=== PATIENT | male | born 1995 | race American Indian/Alaskan Native ===

== ENCOUNTER 2018-01-20 17:33 | Emergency (ER) | payer BC ==
[2018-01-20 17:52] VITALS: BP 131/74
[2018-01-20] MEDS ORDERED: NACL 0.9% 500 ML 500 ML IV ONE (19:42)
[2018-01-20] MEDS ORDERED: ROCEPHIN/NS 1 GM/50 ML 1 GM/50 ML BAG IV ONE (19:42)
[2018-01-20] MEDS ORDERED: MORPHINE IV ONE (19:42)
[2018-01-20] MEDS ORDERED: ROCEPHIN IM ONE (19:46)
--- NOTE | 2018-01-20 19:50 | Emergency Department Report ---
ED General Adult HPI - General Chief complaint: Animal Bite Stated complaint: INSECT BITE Time Seen by Provider: 01/20/18 19:42 Source: patient, EMS Mode of arrival: Wheelchair Limitations: No Limitations - History of Present Illness Initial comments: 22-year-old -[place] male comes in complaint of right left lower leg pain. Patient reports that his right lower legs has redness and swelling with a proximal 2 inch abrasion. Patient thinks he was bitten by a spider. Patient has received 1 L of normal saline with 18-gauge in his left arm by EMS. Patient is not febrile has no past medical history currently takes no medications has no known drug allergies. - Related Data Previous Rx's Medication Instructions Recorded Last Taken Type HYDROcodone/ACETAMINOPHEN [[place] 1 each PO Q6H PRN #8 tablet 01/20/18 Unknown Rx 5-325 Tablet] Sulfamethoxazole/Trimethoprim 1 each PO BID 10 Days #20 tablet 01/20/18 Unknown Rx [Bactrim DS TAB] Allergies Allergy/AdvReac Type Severity Reaction Status Date / Time No Known Allergies Allergy Unverified 01/20/18 17:47 ED Review of Systems ROS: Stated complaint: INSECT BITE Other details as noted in HPI Constitutional: denies: chills, fever Eyes: denies: eye pain, eye discharge, vision change ENT: denies: ear pain, throat pain Respiratory: denies: cough, shortness of breath, wheezing Cardiovascular: denies: chest pain, palpitations Endocrine: no symptoms reported Gastrointestinal: denies: abdominal pain, nausea, diarrhea Genitourinary: denies: urgency, dysuria Musculoskeletal: back pain Skin: rash, change in color Neurological: denies: headache, weakness, paresthesias Psychiatric: denies: anxiety, depression Hematological/Lymphatic: denies: easy bleeding, easy bruising ED Past Medical Hx - Past Medical History Previous Medical History?: No - Surgical History Past Surgical History?: No - Social History Smoking Status: Current Every Day Smoker Substance Use Type: Alcohol, Marijuana - Medications Home Medications: Home Medications Medication Instructions Recorded Confirmed Last Taken Type HYDROcodone/ACETAMINOPHEN [[place] 1 each PO Q6H PRN #8 tablet 01/20/18 Unknown Rx 5-325 Tablet] Sulfamethoxazole/Trimethoprim 1 each PO BID 10 Days #20 tablet 01/20/18 Unknown Rx [Bactrim DS TAB] ED Physical Exam - General Limitations: No Limitations General appearance: alert, in no apparent distress - Head Head exam: Present: atraumatic, normocephalic - Eye Eye exam: Present: normal appearance - ENT ENT exam: Present: mucous membranes moist - Respiratory Respiratory exam: Present: normal lung sounds bilaterally. Absent: respiratory distress - Cardiovascular Cardiovascular Exam: Present: regular rate, normal rhythm. Absent: systolic murmur, diastolic murmur, rubs, gallop - GI/Abdominal GI/Abdominal exam: Present: soft, normal bowel sounds - Rectal Rectal exam: Present: deferred - Expanded Lower Extremity Exam Right Upper Leg exam: Present: normal inspection Knee exam: Present: normal inspection Lower Leg exam: Present: tenderness, swelling, erythema Ankle exam: Present: normal inspection Foot/Toe exam: Present: normal inspection Neuro vascular tendon exam: Present: no vascular compromise - Back Exam Back exam: Present: normal inspection, full ROM - Neurological Exam Neurological exam: Present: alert, oriented X3 - Psychiatric Psychiatric exam: Present: normal affect, normal mood - Skin Skin exam: Present: other (right lower leg swelling erythema tenderness very tender to palpate with a 2 cm black abrasion.) ED Course Vital Signs 01/20/18 17:47 Temperature 98.6 F Pulse Rate 109 H Respiratory 20 Rate Blood Pressure 131/74 O2 Sat by Pulse 94 Oximetry ED Medical Decision Making - Medical Decision Making Patient has been evaluated by this provider fast track. Patient has had ordered 500 mL of normal saline which equals 1.5 L since patient had 1 L by EMS prior to arrival. Patient's been given 1 g of Ceftin IV. He's been given 2 mg of morphine IV. Discussed patient we would discharge him on Septra double strength one tablet by mouth twice a day. I will send him home or note: 5 mg every 6 hours when necessary as well as he can take ibuprofen by mouth every 6- 8 hours 600 mg. Discussed the patient is to follow up with primary care to have another provider evaluate his leg to be shorts improving. Also discussed the patient that I am working this cellulitis. In instructed him if this swelling in the erythematous travels beyond the line that he needs to return back to the emergency room. Patient and mother verbalized understanding. Critical care attestation.: If time is entered above; I have spent that time in minutes in the direct care of this critically ill patient, excluding procedure time. ED Disposition Clinical Impression: Cellulitis of right leg without foot Disposition: DC-01 TO HOME OR SELFCARE Is pt being admited?: No Does the pt Need Aspirin: No Condition: Stable Instructions: Cellulitis (ED) Additional Instructions: Please complete antibiotics as prescribed. Please do not operate heavy machinery while taking the [place]. He can take ibuprofen 600 mg by mouth every 8 hours when necessary as needed for pain as well. It is very important free to follow up with a primary care provider to be reevaluated. Prescriptions: HYDROcodone/ACETAMINOPHEN [[place] 5-325 Tablet] 1 each PO Q6H PRN #8 tablet PRN Reason: Pain Sulfamethoxazole/Trimethoprim [Bactrim DS TAB] 1 each PO BID 10 Days #20 tablet Referrals: PRIMARY CARE [Primary Care Provider] - 3-5 Days [facility], [facility] [Provider Group] - 3-5 Days Forms: Work/School Release Form(ED), Accompanied Note
== END 2018-01-20 22:20 | disposition home or self-care (01) ==
LOC: ED 17:33
DX: L03.115 Cellulitis of right lower limb (principal); F17.200 Nicotine dependence, unspecified, uncomplicated; F12.10 Cannabis abuse, uncomplicated
CPT/HCPCS: 96365; 96375; 99283; J0696; J2270; J7040

== ENCOUNTER 2018-02-20 12:01 | Emergency (ER) | payer BC ==
[2018-02-20 13:08] LABS: Basophils % (Auto) 0.4 % (0.0-1.8); Eosinophils # (Auto) 0.1 K/mm3 (0.0-0.4); Eosinophils % (Auto) 1.3 % (0.0-4.3); Hematocrit 39.4 % (35.5-45.6); Hemoglobin 13.7 gm/dl (11.8-15.2); Lymphocytes # (Auto) 1.8 K/mm3 (1.2-5.4); Mean Corpuscular HGB Conc 35 % (32-34); Mean Corpuscular Hemoglobin 33 pg (28-32); Mean Corpuscular Volume 95 fl (84-94); Monocytes # (Auto) 0.7 K/mm3 (0.0-0.8); Monocytes % (Auto) 9.9 % (0.0-7.3); Platelet Count 133 K/mm3 (140-440); Red Blood Count 4.14 M/mm3 (3.65-5.03); Red Cell Distribution Width 13.2 % (13.2-15.2)
[2018-02-20 13:11] LABS: Bilirubin,Urine NEG (Negative); Blood,Urine NEG (Negative); Color,Urine Straw (Yellow); Protein,Urine <15 mg/dL mg/dL (Negative); Urobilinogen,Urine < 2.0 mg/dL (<2.0); WBC,Urine < 1.0 /HPF (0.0-6.0)
[2018-02-20 13:29] LABS: BUN/Creatinine Ratio 18; Blood Urea Nitrogen 14 mg/dL (9-20); Calcium 8.8 mg/dL (8.4-10.2); Hemolysis Index 135
[2018-02-20 13:37] LABS: Amphetamine Screen,Urine PRESUMPTIVE NEGATIVE; Benzodiazepines Screen,Urine PRESUMPTIVE NEGATIVE; Cannabinoid Screen,Urine PRESUMPTIVE NEGATIVE; Cocaine Screen,Urine PRESUMPTIVE NEGATIVE; Methadone Screen,Urine PRESUMPTIVE NEGATIVE; Opiate Screen,Urine PRESUMPTIVE NEGATIVE
[2018-02-20 14:07] LABS: Alanine Aminotransferase 62 units/L (7-56)
--- NOTE | 2018-02-20 14:12 | Emergency Department Report ---
ED General Adult HPI - General Chief complaint: Altered Mental Status Stated complaint: SYNCOPE Time Seen by Provider: 02/20/18 12:46 Source: EMS Mode of arrival: Ambulatory Limitations: Altered Mental Status - History of Present Illness Initial comments: Patient presents to emergency department via EMS for syncopal episode. Patient states he bought 2 cigarettes from [employer] and he thinks they were laced. Patient states he began to smoke for cigarette and knows that it tasted weird so he discarded it and shortly after discarding the cigarette he passed out. Patient is not sure if he hit his head or not. Patient denies chest pain, abdominal pain, headache. Severity scale (0 -10): 2 Improves with: none Worsens with: none Associated Symptoms: denies other symptoms Treatments Prior to Arrival: none - Related Data Previous Rx's Medication Instructions Recorded Last Taken Type HYDROcodone/ACETAMINOPHEN [[place] 1 each PO Q6H PRN #8 tablet 01/20/18 Unknown Rx 5-325 Tablet] Sulfamethoxazole/Trimethoprim 1 each PO BID 10 Days #20 tablet 01/20/18 Unknown Rx [Bactrim DS TAB] Allergies Allergy/AdvReac Type Severity Reaction Status Date / Time No Known Allergies Allergy Unverified 01/20/18 17:47 ED Review of Systems ROS: Stated complaint: SYNCOPE Other details as noted in HPI Constitutional: denies: chills, fever Eyes: denies: eye pain, eye discharge, vision change ENT: denies: ear pain, throat pain Respiratory: denies: cough, shortness of breath, wheezing Cardiovascular: denies: chest pain, palpitations Endocrine: no symptoms reported Gastrointestinal: denies: abdominal pain, nausea, diarrhea Genitourinary: denies: urgency, dysuria Musculoskeletal: denies: back pain, joint swelling, arthralgia Skin: denies: rash, lesions Neurological: denies: headache, weakness, paresthesias Psychiatric: denies: anxiety, depression Hematological/Lymphatic: denies: easy bleeding, easy bruising ED Past Medical Hx - Past Medical History Previous Medical History?: Yes Hx Hypertension: No Hx CVA: No Hx Heart Attack/AMI: No Hx Congestive Heart Failure: No Hx Diabetes: No Hx Deep Vein Thrombosis: No Hx Pulmonary Embolism: No Hx GERD: No Hx Liver Disease: No Hx Renal Disease: No Hx of Cancer: No Hx Sickle Cell Disease: No Hx Arthritis: No Hx Headaches / Migraines: No Hx Seizures: No Hx Kidney Stones: No Hx Psychiatric Treatment: Yes Hx Asthma: No Hx COPD: No Hx Tuberculosis: No Hx Dementia: No Hx HIV: No - Surgical History Past Surgical History?: No Hx Coronary Stent: No Hx Open Heart Surgery: No Hx Pacemaker: No Hx Internal Defibrillator: No Hx Cholecystectomy: No Hx Appendectomy: No Hx Breast Surgery: No - Social History Smoking Status: Current Every Day Smoker Substance Use Type: Methamphetamines - Medications Home Medications: Home Medications Medication Instructions Recorded Confirmed Last Taken Type HYDROcodone/ACETAMINOPHEN [[place] 1 each PO Q6H PRN #8 tablet 01/20/18 Unknown Rx 5-325 Tablet] Sulfamethoxazole/Trimethoprim 1 each PO BID 10 Days #20 tablet 01/20/18 Unknown Rx [Bactrim DS TAB] ED Physical Exam - General Limitations: Altered Mental Status General appearance: alert, in no apparent distress - Head Head exam: Present: atraumatic, normocephalic - Eye Eye exam: Present: normal appearance, PERRL, EOMI - ENT ENT exam: Present: mucous membranes moist - Neck Neck exam: Present: normal inspection - Respiratory Respiratory exam: Present: normal lung sounds bilaterally. Absent: respiratory distress, wheezes, rales, rhonchi - Cardiovascular Cardiovascular Exam: Present: regular rate, normal rhythm. Absent: systolic murmur, diastolic murmur, rubs, gallop - GI/Abdominal GI/Abdominal exam: Present: soft, normal bowel sounds. Absent: distended, tenderness - Rectal Rectal exam: Present: deferred - Extremities Exam Extremities exam: Present: normal inspection - Back Exam Back exam: Present: normal inspection - Neurological Exam Neurological exam: Present: alert, oriented X3, CN II-XII intact, normal gait, reflexes normal. Absent: motor sensory deficit - Psychiatric Psychiatric exam: Present: normal affect, normal mood - Skin Skin exam: Present: warm, dry, intact, normal color. Absent: rash ED Course Vital Signs 02/20/18 02/20/18 12:28 14:22 Temperature 97.8 F 98.2 F Pulse Rate 56 L 86 Respiratory 12 18 Rate Blood Pressure 118/75 Blood Pressure 118/75 132/82 [Right] O2 Sat by Pulse 100 100 Oximetry ED Medical Decision Making - Lab Data Result diagrams: 02/20/18 12:44 02/20/18 12:44 - EKG Data -: EKG Interpreted by Me EKG shows normal: sinus rhythm Rate: normal, bradycardia - EKG Data Interpretation: other (early repolarization) - Medical Decision Making Discussed results with patient On reevaluation of the patient at 2:38 PM the patient states he feels much better and declines CT of the head. Critical care attestation.: If time is entered above; I have spent that time in minutes in the direct care of this critically ill patient, excluding procedure time. ED Disposition Clinical Impression: Vasovagal episode Disposition: DC-01 TO HOME OR SELFCARE Is pt being admited?: No Does the pt Need Aspirin: No Condition: Stable Instructions: Syncope (ED) Additional Instructions: Return if symptoms become worse Referrals: PRIMARY CARE, [Primary Care Provider] - 3-5 Days AMIE STEWART MD [Staff Physician] - 3-5 Days Time of Disposition: 14:43
[2018-02-20 14:23] VITALS: BP 132/82
== END 2018-02-20 16:20 | disposition home or self-care (01) ==
LOC: ED 12:01
DX: R55 Syncope and collapse (principal); F17.200 Nicotine dependence, unspecified, uncomplicated; F15.10 Other stimulant abuse, uncomplicated
CPT/HCPCS: 36415; 80053; 80307; 81001; 84443; 85025; 93005; 93010; 99284; G0480; 80320

== ENCOUNTER 2018-12-07 05:44 | Emergency (ER) | payer BC | END 2018-12-07 05:50 | disposition left against medical advice (07) | LOC: ED 05:44 ==

== ENCOUNTER 2019-01-07 19:10 | Emergency (ER) | payer BC ==
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
[2019-01-07] MEDS ORDERED: ATIVAN IV STA (20:50)
[2019-01-07] MEDS ORDERED: XYLOCAINE 1% 20 mL INFILTRATI ONE (21:41)
--- NOTE | 2019-01-07 21:50 | Cat Scan Report ---
PROCEDURE: CT FACIAL BONES WO CON TECHNIQUE: Axial images obtained face without intravenous contrast. Sagittal and coronal reformatted images obtained. HISTORY: facial pain COMPARISONS: None FINDINGS: The mandible is intact. Zygomatic arches and pterygoid plates intact. Nasal septum deviates slightly to the right. Mild bilateral erick bullosa deformity. Nasal bones are intact. Paranasal sinuses demonstrate no air-fluid level. No fracture. No significant mucosal thickening. Orbital maharaj are intact. No fracture. Orbital contents are unremarkable. IMPRESSION: No acute facial fracture identified.. Paranasal sinuses demonstrate no significant inflammatory change. This document is electronically signed by Gregg Griffin MD., January 07 2019 09:47:45 PM ET
[2019-01-07] MEDS ORDERED: NACL 0.9% 500 ML IR ONE (21:53)
--- NOTE | 2019-01-07 22:24 | Cat Scan Report ---
PROCEDURE: CT cervical spine without contrast. TECHNIQUE: Computerized tomography of the cervical spine was performed from the skull base to T1 wit hout contrast material. CT DOSE LENGTH PRODUCT: 486.25 mGycm HISTORY: Neck pain. COMPARISONS: None. FINDINGS: The cervical vertebrae have normal height and alignment. There are no fractures. There is no subluxat ion. The disc spaces are well-maintained. The spinal canal is widely patent. The facet joints appear satisfactory. The neural foramina are widely patent. IMPRESSION: No significant abnormality. This document is electronically signed by Rei Fraga MD., January 07 2019 10:21:44 PM ET
--- NOTE | 2019-01-07 22:41 | Cat Scan Report ---
PROCEDURE: CT HEAD/BRAIN WO CON TECHNIQUE: Axial images obtained without intravenous contrast. HISTORY: facial pain COMPARISONS: None FINDINGS: No acute extra-axial fluid collection. No midline shift. No cisternal effacement. Ventricular system unremarkable. Lara-white interface maintained. No suspect hyperdensity over the middle cerebral arter ies. No parenchymal hemorrhage. Calvarium demonstrates no acute defect. Paranasal sinuses demonstrate no air-fluid level. IMPRESSION: No acute intracranial process.. This document is electronically signed by Gregg Griffin MD., January 07 2019 10:39:18 PM ET
[2019-01-07] MEDS ORDERED: ATIVAN IM STA (23:29)
[2019-01-07] MEDS ORDERED: ATIVAN ONE (23:32)
[2019-01-08 02:04] LABS: Mean Corpuscular HGB Conc 36 % (32-34); Mean Corpuscular Volume 94 fl (84-94); Platelet Count 168 K/mm3 (140-440); Red Blood Count 4.95 M/mm3 (3.65-5.03); Red Cell Distribution Width 12.3 % (13.2-15.2)
[2019-01-08 02:05] LABS: Hematocrit 46.4 % (35.5-45.6); Hemoglobin 16.5 gm/dl (11.8-15.2)
[2019-01-08 02:36] VITALS: BP 92/53
[2019-01-08 02:41] LABS: Alanine Aminotransferase 36 units/L (7-56); Albumin 4.5 g/dL (3.9-5); BUN/Creatinine Ratio 15; Blood Urea Nitrogen 16 mg/dL (9-20); Calcium 9.3 mg/dL (8.4-10.2); Hemolysis Index 33
[2019-01-08] MEDS ORDERED: KEFLEX PO ONE (06:00)
== END 2019-01-08 12:00 | disposition home or self-care (01) ==
LOC: ED 19:10
DX: S01.01XA Laceration without foreign body of scalp, initial encounter (principal); Y08.89XA Assault by other specified means, initial encounter; Y93.89 Activity, other specified; Y92.89 Other specified places as the place of occurrence of the external cause; Y99.8 Other external cause status
CPT/HCPCS: 12002; 36415; 70450; 70486; 72125; 80053; 85027; 96372; 99285; G0480; J2060; 80320

== ENCOUNTER 2020-03-15 13:53 | Emergency (ER) | payer BC ==
[2020-03-15 14:00] VITALS: BP 115/63
--- NOTE | 2020-03-15 14:30 | Emergency Department Report ---
Chief Complaint: Nausea/Vomiting/Diarrhea Stated Complaint: VOMITTING BLOOD Time Seen by Provider: 03/15/20 14:25 - HPI History of Present Illness: pt is a 24 yo male who presents to the ED with c/o intermittent vomiting and diarrhea for a week. he has not taken any medication. he denies any fever, no sick contacts. states that he went to [place] two weeks ago. he denies any recent abx, no abd pain, no blood in stool, no melena, no hematemesis. no pmhx. no allergies to meds. + marijuana use. he is able to tolerate PO intake. Vitals are normal Patient has moist mucous membranes He has no signs of acute dehydration He has no tachycardia, no hypotension, no fever, no dry mucous membranes He states he is having intermittent vomiting and diarrhea but has no abdominal pain at all, no fever, no blood or pus in the stool He is presenting most likely with gastroenteritis Discussed supportive care and symptomatic treatment with patient Patient will be referred to a primary care doctor Discussed in detail with patient strict return precautions advised pt increase your fluid intake over the next several days. may take pepto bismol and immodium over the counter. pepto bismol will turn your stool dark that is normal. follow up with a primary care doctor. eat a bland diet, liquids at first and slowly advance as tolerated. avoid anything sugary or greasy. avoid marijuana use. return to the emergency room for any new or worsening symptoms including but not limited to fever, abdominal pain, unable to tolerate by mouth intake, etc. Medical screening examination performed and there is no threat to life or limb at this time - Exam Vital Signs: Vital Signs 03/15/20 13:59 Temperature 98.3 F Pulse Rate 80 Respiratory 18 Rate Blood Pressure 115/63 O2 Sat by Pulse 97 Oximetry MSE screening note: Focused history and physical exam performed. ED Disposition for MSE Clinical Impression: Vomiting and diarrhea Disposition: Z-07 MED SCREENING EXAM-LEFT Is pt being admited?: No Does the pt Need Aspirin: No Condition: Stable Instructions: Gastroenteritis (ED) Additional Instructions: increase your fluid intake over the next several days. may take pepto bismol and immodium over the counter. pepto bismol will turn your stool dark that is normal. follow up with a primary care doctor. eat a bland diet, liquids at first and slowly advance as tolerated. avoid anything sugary or greasy. avoid marijuana use. return to the emergency room for any new or worsening symptoms including but not limited to fever, abdominal pain, unable to tolerate by mouth intake, etc. Referrals: STEFFANY ROGERS MD [Staff Physician] - 3-5 Days [facility] [Provider Group] - 3-5 Days Time of Disposition: 14:28 Print Language: FAROESE
== END 2020-03-15 14:44 | disposition left against medical advice (07) ==
LOC: ED 13:53
DX: R19.7 Diarrhea, unspecified (principal); R11.10 Vomiting, unspecified
CPT/HCPCS: 99281